=== PATIENT | male | born 1985 | race Caucasian/White ===

== ENCOUNTER 2017-07-12 12:24 | Emergency (ER) | payer SELFPAY ==
[2017-07-12 12:28] VITALS: BMI 22.1
[2017-07-12] MEDS ORDERED: morphine CARPU-JECT 4 MG/1 ML DISP.SYRIN IVPUSH ONE (12:49)
--- NOTE | 2017-07-12 12:58 | PDOC ---
History of Present Illness - General Chief Complaint: Pain Stated Complaint: TESTICLE PAIN Time Seen by Provider: 07/12/17 12:42 History Source: Patient Exam Limitations: No Limitations - History of Present Illness Travel History: No Initial Comments: 07/12/17 12:50 32y M hx of epidimydis/orchitis presents with L testicular pain. Pt staets he woke up with some 'irrigtation'/discomfort in his left testicle, but felt ok otherwise, this omrning, he woke up around 4:30 with a signficant swelling of his l testicle with constant and pounding. pt denies any penile d/c, fever/chils , n/v. pt is homosexual but denies any sexual or anal intercourse in the past 8 months. No dysuria, hematuria. p tnotes he had something similar about 9 months ago an was dc with orchitis and improved after abx. no other known medical poblems Past History - Past Medical History Allergies/Adverse Reactions: Allergies Allergy/AdvReac Type Severity Reaction Status Date / Time No Known Allergies Allergy Verified 07/12/17 12:28 Home Medications: Ambulatory Orders Doxycycline Hyclate 100 mg PO BID #20 capsule 07/12/17 Oxycodone HCl/Acetaminophen [Percocet 5-325 mg Tablet -] 1 combo PO Q6H PRN #14 tablet MDD 4 07/12/17 COPD: No Other medical history: denies - Suicide/Smoking/Psychosocial Hx Smoking History: Never smoked Information on smoking cessation initiated: No Hx Alcohol Use: No Drug/Substance Use Hx: No Substance Use Type: None Review of Systems - Review of Systems Able to Perform ROS?: Yes Comments:: 07/12/17 13:02 Constitutional - no reported Fever, Chills, HEENT: no reported vision changes, sore throat Respiratory: no reported cough, sob, hemoptysis Cardiac: no reported chest pain, palpitations, light headedness, leg swelling Abd/GI: +scrotal pain/swelling no reported abd pain, nausea, vomiting, blood per rectum, melena, diarrhea : no reported dysuria, frequency, discharge Musculskelatal - no reported back pain, joint swelling skin - no reported bruising, erythema, rash neurological: no reported headache, numbness, focal weakness, tingling, ataxia, hematologic: no reported anemia, easy bruising, easy bleeding *Physical Exam - Vital Signs Last Vital Signs Temp Pulse Resp BP Pulse Ox 97.7 F 61 18 171/101 98 07/12/17 12:25 07/12/17 12:25 07/12/17 12:25 07/12/17 12:25 07/12/17 12:25 - Physical Exam Comments: 07/12/17 13:02 GENERAL: The patient is awake, alert, and fully oriented, Nontoxic - in no acute distress. HEAD: Normocephalic, atraumatic. LUNGS: Breath sounds equal, clear to auscultation bilaterally. No wheezes, no rhonchi, no rales. HEART: Regular rate and rhythm, normal S1 and S2 without murmur, rub or gallop. ABDOMEN: scrotal tenderness/erythema, swelling, to L testicle, diffulsely tender , soft abodmen, no rebound/gurading SKIN: Warm, Dry, normal turgor, ED Treatment Course - LABORATORY CBC & Chemistry Diagram: 07/12/17 13:13 07/12/17 13:13 - RADIOLOGY Radiology Studies Ordered: Category Date Time Status SCROTUM AND CONTENTS US [US] Stat Ultrasound 07/12/17 12:48 Ordered Medical Decision Making - Medical Decision Making 07/12/17 13:03 differential includes epididymidis/orchitis vs. torsion n osystemic ocmplaints including ffever, n/v will ck UA will get US will reassess 07/12/17 16:26 lbas reviewed US suggestive of orchitis/epididmydis no signs of torsion will dc the pt with abx and pain meds US also noted for septations - will have him fu with return precautions were discussed I discussed the physical exam findings, ancillary test results and final diagnoses with the patient. I answered all of the patient's questions. The patient was satisfied with the care received and felt comfortable with the discharge plan and treatment plan. The patient will call their primary care physician within 24 hours to arrange follow-up and will return to the Emergency Department with any new, persistent or worsening symptoms. *DC/Admit/Observation/Transfer Diagnosis at time of Disposition: Orchiditis - Discharge Dispostion Disposition: HOME Condition at time of disposition: Improved Admit: No - Referrals Referrals: Eber Taylor MD [Staff Physician] - - Patient Instructions Printed Discharge Instructions: DI for Epididymitis Additional Instructions: Return to the emergency department immediately with ANY new, persistent or worsening symptoms. Your ultrasound was noted for assymetric hyperemia of L testes suggestive of orchitis. therew as signs of septation in your hydrocoele. You should follow up with a urooigist for further evaluation. A copy of the ultrasound was provided for your and your doctors review. You MUST call and follow up with your doctor and a urollgist within 5 days for further evaluation of your symptoms. Results were discussed with you. Please make sure your doctor reviews the results of your emergency evaluation. Print Language: CHADIAN - Post Discharge Activity
[2017-07-12] MEDS ORDERED: morphine SULFATE 4 MG/ML VIAL ONE (13:09)
[2017-07-12 13:24] LABS: BASOPHIL 0.8 % (0-2.0); EOSINOPHIL 1.7 % (0-4.5); MCH 29.7 pg (25.7-33.7); MCHC 33.5 g/dl (32.0-35.9); MEAN CELL VOLUME 88.6 fl (80-96); MEAN PLT VOLUME 8.5 fl (7.5-11.1); NEUTROPHILS 68.8 % (42.8-82.8); PLATELET COUNT 270 K/MM3 (134-434); RDW 13.2 % (11.9-15.9); WHITE BLOOD COUNT 13.3 K/mm3 (4.0-10.0)
[2017-07-12 14:05] LABS: ALBUMIN 4.3 g/dl (3.4-5.0); ANION GAP 11 (8-16); CALCIUM 9.6 mg/dL (8.5-10.1); CO2 26 mmol/L (21-32); GLUCOSE,RANDOM 94 mg/dL (74-106)
[2017-07-12 14:08] LABS: ALK PHOS 113 U/L (45-117); BILIRUBIN,TOTAL 1.3 mg/dL (0.2-1.0); CREATININE 0.9 mg/dL (0.7-1.3); SGOT/AST 15 U/L (15-37); SGPT/ALT 37 U/L (12-78); TOT PROT 8.1 g/dl (6.4-8.2)
[2017-07-12 14:53] LABS: URINE APPEARANCE CLEAR; URINE BILIRUBIN NEGATIVE (NEGATIVE); URINE BLOOD NEGATIVE (NEGATIVE); URINE COLOR STRAW; URINE GLUCOSE (UA) NEGATIVE (NEGATIVE); URINE KETONE NEGATIVE (NEGATIVE); URINE NITRITE NEGATIVE (NEGATIVE); URINE PROTEIN NEGATIVE (NEGATIVE); URINE UROBILINOGEN NEGATIVE mg/dL (0.2-1.0)
[2017-07-12 16:33] VITALS: BP 154/84; PULSE 64; TEMP 98.1
[2017-07-12] MEDS ORDERED: CEFTRIAXONE 1 GM/50 ML BAG ONE (16:44)
[2017-07-13 16:04] LABS: URINE LEUK ESTERASE Negative (NEGATIVE)
== END 2017-07-12 16:50 | disposition home or self-care (01) ==
LOC: JER 12:24
PROC: 3E03329 Introduction of Other Anti-infective into Peripheral Vein, Percutaneous Approach (ICD-10-PCS; principal; 2017-07-12)
PROC: 3E033NZ Introduction of Analgesics, Hypnotics, Sedatives into Peripheral Vein, Percutaneous Approach (ICD-10-PCS; 2017-07-12)
DX: N45.2 Orchitis (principal)
CPT/HCPCS: 36415; 76870-TC; 80053; 81003; 85025; 99281-25